=== PATIENT | male | born 1965 | race Caucasian/White ===

== ENCOUNTER → 2021-07-01 | Outpatient (CLI) | payer BC, OTHER | LOC: SJCVCIMAG 10:29 | PROVIDERS: ATTEND Internal Medicine Cardiovascular Disease | DX: I10 Essential (primary) hypertension (principal); I48.92 Unspecified atrial flutter ==

== ENCOUNTER → 2021-12-17 | Outpatient (CLI) | payer BC, OTHER ==
[~2021-12-17] VITALS: Ht 182.9 cm; Wt 90.7 kg
[~2021-12-17] MED LIST: ALLOPURINOL 10100 M3 PO; LISINOPRIL10 MG PO; LORATIDINE 10 M10 M1 PO; OMEGA 3 1,0001 EACH PO; TAMBOCOR 100 M100 M1 PO; TOPROL XL25 MG PO; VITAMIN D3 COM1 EACH PO; XARELTO20 MG PO
[2021-12-17 07:28] VITALS: BP 144/84
[2021-12-17 07:47] LABS: CALCIUM 9.6 mg/dL (8.5-10.1); CREATININE 1.2 mg/dL (0.7-1.3); POTASSIUM 4.2 mmol/L (3.5-5.1)
[2021-12-17 07:52] LABS: ALBUMIN 3.9 g/dL (3.4-5.0); TOTAL BILIRUBIN 0.4 mg/dL (0.2-1.0); TOTAL PROTEIN 7.7 g/dL (6.4-8.2)
[2021-12-17 07:57] LABS: ABSOLUTE NEUTROPHILS 3.2 thou/uL (1.4-8.2); BASOPHILS 2.8 % (0.0-2.0); EOSINOPHILS 2.1 % (0.0-3.0); HEMATOCRIT 39.2 % (42.0-52.0); HEMOGLOBIN 12.9 gm/dL (14.0-18.0); LYMPHOCYTES 25.7 % (24.0-44.0); MCH 30.5 pg (26.0-34.0); MCHC 32.8 g/dL (28.0-37.0); MCV 92.9 fL (80.0-100.0); MONOCYTES 14.5 % (1.0-8.0); PLATELET COUNT 201 thou/uL (150-400); POLYS 54.9 % (36.0-66.0); RBC 4.22 mil/uL (4.50-6.00); RDW 14.8 % (10.5-14.5); WBC 5.9 thou/uL (4.0-11.0)
[2021-12-17 08:30] LABS: APTT 29.1 Seconds (24.5-32.8); INR 0.98; PROTIME 10.7 Seconds (10.5-12.1)
--- NOTE | 2021-12-17 12:26 | NUR ---
PT TO CV HOLDING RM 2. PT A/OX3 WITH NO C/O OR REQEUST AT THIS TIME. VERBAL REPORT RECEIVED FROM UNIT ASSEMBLER STATING PT HAS INDIGESTION WHEN SUPINE AND IT IS RELEIVED WITH POSITION.
--- NOTE | 2021-12-17 12:30 | NUR ---
PT RETURNED TO CV HOLDING 2 FROM PACU. RT GROIN DRESSING C/D/I. PT ALERT AND ORIENTED. STATES UNDERSTANDING OF IMMOBILITY AND BEDREST.
--- NOTE | 2021-12-28 08:23 | P ---
[facility] [place] [address] [place] [address] PROCEDURE REPORT Name: KIMBERLEY HERNANDEZ Room #: REG [facility].#: [id number] Admission: 12/17/21 Attend Phys: Damián Caldwell MD Discharge: Date of : 65 Report #: [id number] THIS REPORT FOR: cc: Liu Petersen MD, John L. MD Couchonnal, Luis F. MD ~ DATE OF SERVICE: 12/17/2021 PREOPERATIVE DIAGNOSES: Atrial fibrillation and atrial flutter. POSTOPERATIVE DIAGNOSES: Atrial fibrillation and atrial flutter. PROCEDURES PERFORMED: 1. Atrial fibrillation ablation, CPT code 62202 2. 3D mapping, CPT code 51362. 3. Intracardiac echo, CPT code 59907. 5. Second pathway ablation, CPT code 30181. HISTORY: The patient is a 56-year-old with a history of recurrent atrial fibrillation and typical atrial flutter, here for ablation. ANESTHESIA: The patient underwent general anesthesia with no anesthesia related complications. DESCRIPTION OF PROCEDURE: The patient underwent informed consent. We discussed the details of the procedure including the risks, which include but not limited to bleeding, infection, cardiac perforation, stroke and HI. He understood these risks and is willing to proceed. The patient was brought to the EP laboratory in a fasting and sedated state, prepped and draped in standard fashion, obtained access to the right femoral vein x 3, placing an 8, 9 and 7-[place] short sheath using the modified Seldinger technique. Under fluoroscopy, I placed an ICE catheter into the right atrium and a Decapolar catheter in the coronary sinus for left atrial pacing and recording. At baseline, the patient was in sinus rhythm. The patient was systemically heparinized and a transseptal was performed using an SL1 sheath and a [place] needle. I then exchanged for the cryosheath and placed the Lasso catheter in the left atrium. Using the Lasso catheter, 3D geometry of the left atrium was created and the patient had evidence of a large left common ostium and 2 right sided pulmonary veins. The left common ostium required multiple subsegmental freezes to obtain isolation. After several freezes, I remapped the common ostium and there appeared to be connection along the anterior and inferior aspect of the common ostium and therefore, I performed two 4-minute freezes at this site and this resulted in isolation. I then turned my attention to the right superior pulmonary vein. This underwent a 4-minute freeze and isolated at 80 seconds. The right inferior pulmonary vein underwent a 3-minute [facility] [address] [place] [address] PROCEDURE REPORT Name: KIMBERLEY HERNANDEZ Room #: REG [facility].#: [id number] Admission: 12/17/21 Attend Phys: Damián Caldwell MD Discharge: Date of : 65 Report #: [id number] freeze and isolated at 60 milliseconds. A repeat voltage map was created and all pulmonary veins were isolated. Atrial flutter ablation: The patient was then prepped for atrial flutter ablation. I used an 8 mm ablation catheter via a ramp sheath. Preablation, the transisthmus conduction time was 70 milliseconds. Post-ablation, the transisthmus conduction time was 160 milliseconds with an activation sequence consistent with bidirectional block. Ablation was performed at 70 griffin and 60 degrees. Post-ablation, there were no other arrhythmias noted and the procedure was concluded. There was no evidence of pericardial effusion. The patient then received systemic protamine and once ACT was within acceptable range, catheters and sheaths were pulled and hemostasis obtained. The patient awoke neurologically and hemodynamically intact. No complications and no significant bleeding. CONCLUSION: 1. Successful AFib ablation with isolation of the pulmonary veins. 2. Successful atrial flutter ablation with evidence of bidirectional block. <ELECTRONICALLY SIGNED> By: Damián Caldwell MD 12/28/21 0823 [id number] Damián Caldwell MD /nt
== END | disposition home or self-care (01) ==
LOC: CATH 06:45
PROVIDERS: ATTEND Internal Medicine Cardiovascular Disease
DX: I48.91 Unspecified atrial fibrillation (principal); I48.92 Unspecified atrial flutter; I10 Essential (primary) hypertension; G47.33 Obstructive sleep apnea (adult) (pediatric); Z98.890 Other specified postprocedural states; Z79.899 Other long term (current) drug therapy; Z79.01 Long term (current) use of anticoagulants; Z20.822 Contact with and (suspected) exposure to COVID-19
CPT/HCPCS: 62110; 62900; 65020; 65040; 70005